=== PATIENT | female | born 1955 | race Caucasian/White ===

== ENCOUNTER → 2016-07-28 | Outpatient (CLI) | payer BC ==
--- NOTE | 2016-07-28 15:55 | MAMMOGRAPHY REPORT ---
BILATERAL DIGITAL SCREENING MAMMOGRAM TOMOSYNTHESIS WITH CAD: 07/28/2016 CLINICAL HISTORY: Routine screening. Patient has no complaints. TECHNIQUE: Bilateral breast tomosynthesis in addition to standard 2D mammography was performed. Curr ent study was also evaluated with a Computer Aided Detection (CAD) system. COMPARISON: Comparison is made to exams dated: 07/25/2015 mammogram, 07/19/2013 mammogram, 07/23/2014 mammogram, 06/27/2012 mammogram, 06/25/2011 mammogram, and 07/16/2010 ultrasound - [facility]. BREAST COMPOSITION: There are scattered areas of fibroglandular density in both breasts. FINDINGS: There is a possible 6 mm mass in the upper outer middle one third of the right breast, fo r which additional spot compression tomosynthesis views with a small paddle and possibly ultrasound are recommended. Segmental punctate microcalcifications in the left retroareolar breast are unchanged on prior mammog andrey dating back to at least 11/06/2007, therefore likely benign. No other suspicious mass, architec tural distortion or cluster of microcalcifications is seen. IMPRESSION: ACR BI-RADS CATEGORY 0: INCOMPLETE EVALUATION: NEED ADDITIONAL IMAGING EVALUATION The possible 6 mm mass in the right upper outer breast needs additional evaluation. The patient will be called to schedule an appointment. Approximately 10% of breast cancers are not detected with mammography. A negative mammographic repor t should not delay biopsy if a clinically suggestive mass is present. Fannie Curran M.D. ay/:07/28/2016 12:46:17 Bale Sewer: Tanya Henson RT(R)(M), [facility] letter sent: Addl Imaging 0 BI-RADS Code: ACR BI-RADS Category 0: Incomplete Evaluation: Need Additional Imaging Evaluation
== END | disposition home or self-care (01) ==
LOC: C.MAMM 08:00
PROVIDERS: ATTEND Family Medicine
DX: Z12.31 Encounter for screening mammogram for malignant neoplasm of breast (principal); R92.8 Other abnormal and inconclusive findings on diagnostic imaging of breast

== ENCOUNTER → 2016-08-05 | Outpatient (CLI) | payer BC ==
--- NOTE | 2016-08-05 15:07 | MAMMOGRAPHY REPORT ---
UNILATERAL RIGHT DIGITAL DIAGNOSTIC MAMMOGRAM TOMOSYNTHESIS AND TARGETED RIGHT ULTRASOUND: 08/05/2016 CLINICAL HISTORY: Callback from screening mammogram for right breast asymmetry. TECHNIQUE: Breast tomosynthesis in addition to standard 2D mammography was performed. Spot clifford patrick right CC and MLO 2-D and tomosynthesis images were obtained. COMPARISON: Comparison is made to exams dated: 07/28/2016 mammogram, 07/25/2015 mammogram, 07/23/2014 mammogram, 07/19/2013 mammogram, 06/27/2012 mammogram, and 06/25/2011 mammogram - [facility]. BREAST COMPOSITION: There are scattered areas of fibroglandular density in the right breast. FINDINGS: The previously described asymmetry seen within the right upper outer quadrant effaces to a baseline appearance on the additional views, with appearance of this region similar to multiple pr ior exams on the additional views including the 2009 exam. No discrete mammographic mass or area of architectural distortion is seen in this region on the tomosynthesis images. Targeted ultrasound was performed of the right upper outer quadrant in the region of the mammographi c asymmetry. Sonographically normal tissue is seen, without evidence of a mass or other suspicious sonographic abnormality. IMPRESSION: ACR BI-RADS CATEGORY 2: BENIGN, TARGETED ULTRASOUND ACR BI-RADS CATEGORY 2: BENIGN The right breast asymmetry effaces on the additional views, without corresponding sonographic abnorm ality evident. The asymmetry is benign and compatible with normal fibroglandular tissue. There is no mammographic or targeted sonographic evidence of malignancy. A 1 year screening mammogram is matthias mmended. The patient has been verbally notified of the results. Approximately 10% of breast cancers are not detected with mammography. A negative mammographic repor t should not delay biopsy if a clinically suggestive mass is present. Rhoda Kinsey M.D. /:08/05/2016 09:01:16 Detective Chief: Ana M Laureano, [facility] letter sent: Normal 1/2 BI-RADS Code: ACR BI-RADS Category 2: Benign Ultrasound BI-RADS: ACR BI-RADS Category 2: Benign
== END | disposition home or self-care (01) ==
LOC: C.MAMM 08:40
PROVIDERS: ATTEND Family Medicine
DX: N63 Unspecified lump in breast (principal); N64.89 Other specified disorders of breast

== ENCOUNTER → 2017-08-03 | Outpatient (CLI) | payer OTHER ==
--- NOTE | 2017-08-03 15:21 | MAMMOGRAPHY REPORT ---
BILATERAL DIGITAL SCREENING MAMMOGRAM TOMOSYNTHESIS WITH CAD: 08/03/2017 CLINICAL HISTORY: Routine screening. Patient has no complaints. TECHNIQUE: Breast tomosynthesis in addition to standard 2D mammography was performed. Current study was also evaluated with a Computer Aided Detection (CAD) system. COMPARISON: Comparison is made to exams dated: 08/05/2016 ultrasound, 08/05/2016 mammogram, 07/28/2016 ma mmogram, 07/25/2015 mammogram, 07/23/2014 mammogram, and 07/19/2013 mammogram - [facility]. BREAST COMPOSITION: There are scattered areas of fibroglandular density in both breasts. FINDINGS: There is a stable intramammary lymph node in the left upper outer quadrant posteriorly, and a stable grouping of punctate microcalcifications in the central left breast. No new suspicious mas s, architectural distortion or cluster of microcalcifications is seen. IMPRESSION: ACR BI-RADS CATEGORY 1: NEGATIVE There is no mammographic evidence of malignancy. A 1 year screening mammogram is recommended. The pa tient will receive written notification of the results. Approximately 10% of breast cancers are not detected with mammography. A negative mammographic report should not delay biopsy if a clinically suggestive mass is present. Fannie Curran M.D. ay/:08/03/2017 08:10:51 Manager Consumer: Ana M Laureano, [facility] letter sent: Normal 1/2 BI-RADS Code: ACR BI-RADS Category 1: Negative
== END | disposition home or self-care (01) ==
LOC: C.MAMM 07:52
PROVIDERS: ATTEND Family Medicine
DX: Z12.31 Encounter for screening mammogram for malignant neoplasm of breast (principal)

== ENCOUNTER 2019-04-02 09:44 | Inpatient (IN) ==
--- NOTE | 2019-03-19 13:59 | PAT Medication Instructions ---
Medication Instructions Date of Service March 19, 2019 Home Medications Ca carb-Ca gluc-Mg ox-Mg gluco [Calcium Magnesium] 1 tab PO DAILY Potassium 2 tab PO DAILY cholecalciferol (vitamin D3) [Vitamin D3] 1,000 unit PO DAILY collagen (bovine) 100 % TOPICAL UD flaxseed oil 2,000 mg PO DAILY levothyroxine 125 mcg PO UD vitamin B complex 1 tab PO DAILY STOP taking 2 weeks before surgery (or as soon as possible if surgery is within 2 weeks) flaxseed oil 2,000 mg PO DAILY STOP taking 24 hours before surgery collagen (bovine) 100 % TOPICAL UD DO NOT take the morning of surgery Ca carb-Ca gluc-Mg ox-Mg gluco [Calcium Magnesium] 1 tab PO DAILY Potassium 2 tab PO DAILY cholecalciferol (vitamin D3) [Vitamin D3] 1,000 unit PO DAILY vitamin B complex 1 tab PO DAILY Take morning of surgery With a small sip of water, OTHERWISE NOTHING TO EAT OR DRINK AFTER MIDNIGHT: levothyroxine 125 mcg PO UD Other Notes If you have any questions please call us at [phone] or [phone] or [phone] or [phone]
--- NOTE | 2019-03-20 11:35 | Anesthesiology Consultation ---
Date of Service March 20, 2019 Assessment & Plan (1) Encounter for pre-operative examination: Chart Review Chart Review: Acceptable Risk for Surgery and Patient seen in Pre Admission Testing Teaching & Discussion Pre-Anesthesia Teaching/Discussion Notes: Instructed NPO after midnight before surgery,except medications with 15 cc of water. Medication instructions provided according to the PAT guidelines. History Surgery Operation Date: 04/02/19 12:00 Proposed Procedures p Total Hip Arthroplasty Uncemented - Donnie Del Toro MD Height/Weight Height: 5 ft 6 in Weight: 58.1 kg Allergies Allergy/AdvReac Type Severity Reaction Status Date / Time oxycodone [From Percocet] AdvReac Intermediate SEVERE Verified 03/19/19 13:57 BLADDER SPASMS (SEE COMMENTS) Medications Home Medications Medication Instructions Recorded Confirmed Last Taken Ca carb-Ca gluc-Mg ox-Mg gluco 1 tab PO DAILY 03/13/19 03/13/19 Unknown [Calcium Magnesium] Potassium 2 tab PO DAILY 03/13/19 03/13/19 Unknown cholecalciferol (vitamin D3) 1,000 unit PO DAILY 03/13/19 03/13/19 Unknown [Vitamin D3] collagen (bovine) 100 % TOPICAL UD 03/13/19 03/13/19 Unknown flaxseed oil 2,000 mg PO DAILY 03/13/19 03/13/19 Unknown levothyroxine 125 mcg PO UD 03/13/19 03/13/19 Unknown vitamin B complex 1 tab PO DAILY 03/13/19 03/13/19 Unknown Past Medical History Medical History (Updated 03/20/19 @ 11:48 by Betzy Daily) Hypothyroidism MVP (mitral valve prolapse) Per patient, told MVP in 30's/no evidence of MVP per 2004 stress ECHO/no murmur on PAT exam Osteoarthritis Exercise / Class Metabolic Activity II 4-5 Yardwork/Stairs/Walk up hill (one flight of stairs (no chest pain/no sob)) Past Family History Family History Other No significant family history Past Surgical History Surgical History History of colonoscopy History of mandibular surgery JAW WIRED S/P JAW FX- NO ROM LIMITATIONS History of open reduction and internal fixation (ORIF) procedure LEFT LEG/ANKLE (HARDWARE) History of tonsillectomy Past Anesthesia History No Hx of Anesthesia Complications and No Family Hx of Anesthesia Complications History of PONV Hx of Motion Sickness Social History Smoking Status: Former smoker tobacco type: cigarettes Do You Dip or Chew Tobacco: No Smoking End Date: light use as teen Hx Alcohol Use: Yes Alcohol type: wine alcohol intake frequency: 0-2 drinks per day Alcohol Intake Frequency Comment: 1 GLASS DAILY ON AVERAGE Hx Substance Use: No substance use type: does not use Review of Systems Patient denies chest pain, shortness of breath, dyspnea on exertion, cough, wheezing, palpitations. Physical Exam Vital Signs VITALS BP 101/61 (per patient, BP typically lwo to normal range) P 65 TEMP 98.2 SP02 98%RA RESP 16 PHYSICAL Full neck and c-spine range of motion. Full TMJ range of motion. TMD 3.5 finger breaths Mallampati Score 3 Dentition: intact, upper front caps Lungs: clear throughout to auscultation Cardiac: regular rate and rhythm, no murmurs noted Spine: normal Carotid arteries: negative bruit Extremities: no edema Testing Laboratory Results 03/20/19 11:54 03/20/19 11:54 PT 10.0 Seconds (9.0-12.0) 03/20/19 11:54 INR 1.0 (0.9-1.1) 03/20/19 11:54 APTT 24.2 Seconds (21.0-31.0) 03/20/19 11:54 Blood Type O Positive 03/20/19 11:54 Antibody Screen NEGATIVE 03/20/19 11:54 Electrocardiogram Date: 03/20/19 NSR at 69bpm. Possible anterior infarct (no significant change compared to 12/23/2010 per cardiology) Chest X-Ray Date: 03/20/19 Cardiomediastinal and hilar silhouettes are within normal limits. Lungs are hyperinflated. There is no pneumothorax, pleural effusion, focal airspace consolidation or overt pulmonary edema. Degenerative changes of the shoulders and spine. Hyperinflation without acute process. Stress Test Date: 08/14/04 "Normal" stress ECHO. LVEF 75%. Stress EKG normal. Stress wall motion is normal. Mitral valve anatomy is normal. Mitral regurgitation in absent. No significant valvular disease.
--- NOTE | 2019-03-20 12:28 | XRay Report ---
XR chest Pre-admission PA/Lat HISTORY: 63 years-old Female pat preoperative exam. No acute chest complaints COMPARISON: None available TECHNIQUE: PA and lateral views of the chest FINDINGS: Cardiomediastinal and hilar silhouettes are within normal limits. Lungs are hyperinflated. There is n o pneumothorax, pleural effusion, focal airspace consolidation or overt pulmonary edema. Degenerative changes of the shoulders and spine. IMPRESSION: Hyperinflation without acute process. The above report was generated using voice recognition software. It may contain grammatical, syntax o r spelling errors. Electronically signed by: Олег Brito M.D. 03/20/2019 12:27 PM
[2019-03-20 12:47] LABS: Basophils # (auto) 0.06 K/uL (0-0.2); Basophils % (auto) 1.4 %; Eosinophils # (auto) 0.13 K/uL (0-0.5); Eosinophils % (auto) 3.1 %; Hematocrit (blood only) 41.1 % (37-47); Lymphocytes # (auto) 1.32 K/uL (1.2-3.4); Lymphocytes % (auto) 31.1 %; Mean Corpuscular Hemoglobin 29.7 pg (25-34); Mean Corpuscular Hgb Conc 31.6 g/dL (32-36); Mean Corpuscular Volume 94.1 fL (80-100); Mean Platelet Volume 11.2 fL (7.4-10.4); Monocytes # (auto) 0.37 K/uL (0.11-0.59); Monocytes % (auto) 8.7 %; Neutrophils # (auto) 2.36 K/uL (1.4-6.5); Neutrophils % (auto) 55.7 %; Platelet Count 200 K/uL (130-400); RDW Coefficient of Variation 13.5 % (11.5-14.5); RDW Standard Deviation 46.8 fL (36.4-46.3); Red Blood Count 4.37 M/uL (4.2-5.4); White Blood Count 4.24 K/uL (4.8-10.8)
[2019-03-20 13:01] LABS: Partial Thromboplastin Ratio 0.9; Partial Thromboplastin Time 24.2 Seconds (21.0-31.0)
[2019-03-20 13:04] LABS: BUN Creatinine Ratio 16.4 (10-20); Calcium 9.4 mg/dl (8.5-10.1); Creatinine Clr Calc Pharmacy 48.6 ml/min; Est GFR (African American) 62.3; Est GFR (Non-African American) 53.8; Potassium 3.8 mmol/L (3.5-5.1)
--- NOTE | 2019-03-28 22:12 | History and Physical Report ---
DATE OF ADMISSION: 04/02/2019 CHIEF COMPLAINT: Left hip pain. HISTORY OF PRESENT ILLNESS: The patient is a 63-year-old very active female who presents for surgical treatment of her left hip. She has a long history of left hip pain and discomfort that has gradually gotten worse over the past several years. It has really limited her activities. She used to exercise regularly but not able to do that, near as much anymore. She used to run and does not run at all. She has started to develop more and more of a limited walking ability. She has difficulty putting her shoes and socks on. She has pain going up and down steps. She has nighttime pain. She would like to have her left hip fixed. She does have occasional pain in her right hip as well. PAST MEDICAL HISTORY: 1. Mitral valve prolapse. PAST SURGICAL HISTORY: Include left ankle ORIF done by myself in 12/24/2010. ALLERGIES: None. CURRENT MEDICATIONS: Include levothyroxine half tablet a day. SOCIAL HISTORY: A 63-year-old female. Works at [employer]. Does not smoke. Very avid stamping machine operator. FAMILY HISTORY: Noncontributory. REVIEW OF HISTORY: Negative for diabetes, neurologic problem, vascular problems or bleeding disorders. Denies any chest pain or shortness of breath. No signs of DVT or PE. PHYSICAL EXAMINATION: GENERAL: Shows a thin, pleasant, healthy, middle-aged female. Looks to be in excellent health. HEENT: Benign. NECK: Supple, no lymphadenopathy. LUNGS: Clear to auscultation. HEART: Has a regular rate and rhythm. ABDOMEN: Soft, nontender, nondistended. EXTREMITIES: Grossly neurovascularly intact except as follows: Examination of left hip revealed patient walks with a slight bit of a limp. Leg lengths appear pretty equal. She has a very stiff hip with internal rotation to neutral at best. This recreates her pain. Negative straight leg raise. She is neurologically intact. No knee effusion. X-RAYS: X-rays of the left hip were reviewed. Shows advanced left hip DJD. She has got complete loss of her superior joint space. She has extensive subchondral sclerosis and pretty significant medial osteophyte. She does have some moderate right hip degenerative joint disease as well. ASSESSMENT: A 63-year-old female with advanced left hip degenerative joint disease. She failed conservative treatment and would like to have her left hip replaced. PLAN: We will take her to the operating room and do a left total hip replacement. The risks and benefits of this procedure were explained to the patient and include but not limited to DVT, PE, , infection, neurological injury, vascular injury, bleeding problem, pain, limited range of motion, stiffness, failure to relieve symptoms, incomplete relief of symptoms, need for further surgery in future, fracture, leg length inequality, nerve palsy, dislocation, need for revision surgery. The patient understands and desires to proceed. Informed consent was obtained. Medicines, no new medicines at this time. Work or school restrictions none. Return in 2 weeks postop.
[~2019-04-02 09:44] MED LIST: ACETAMINOPHEN 500 MG TAB PO SCH; BUPIVACAINE 0.5 % 5 MG/1 ML PF 10ML VIAL ONE; CEFAZOLIN 2000MG 2,000 MG/15 ML SYR IV SCH; FAMOTIDINE 20 MG TAB PO SCH; GABAPENTIN 600 MG DOSE PO SCH; LR 500ML BOLUS, THEN 15ML/HR IV SCH; LR 60ML/HR IV SCH; METOCLOPRAMIDE HCL 10 MG TABLET PO SCH; SCOPOLAMINE 1.5 MG TDSY TD SCH; TRANEXAMIC ACID 1,000 MG **IV Pre-op IV SCH
[2019-04-02] MEDS ORDERED: EPINEPHrine INJ 1 MG/ML AMP ONE (10:47)
[2019-04-02] MEDS ORDERED: BUPIVACAINE 0.5 % 5 MG/1 ML MPF 30ML VIAL ONE (10:48)
[2019-04-02] MEDS ORDERED: BACITRACIN INJ 50,000 UNIT VIAL ONE (10:48)
[2019-04-02] MEDS ORDERED: MIDAZOLAM HCL 1 MG/ML 2ML VIAL ONE (11:49)
[2019-04-02] MEDS ORDERED: MoRPHine SULFATE PF 1 MG/ML 10 ML AMP/VIAL ONE (11:51)
[2019-04-02] MEDS ORDERED: fentaNYL citrate 100 MCG/2 ML VIAL ONE (11:51)
--- NOTE | 2019-04-02 12:27 | History & Physical Bridge Note ---
Date of Service April 02, 2019 History & Physical Bridge Note I have examined the patient, reviewed the History & Physical and in the interval since the performance of the History & Physical I have noted the following changes of clinical significance: no changes noted
[2019-04-02] MEDS ORDERED: PHENYLEPHRINE HCL 10 MG/ML VIAL ONE (13:15)
[2019-04-02] MEDS ORDERED: ePHEDrine sulfate 50 MG/ML SYR ONE (13:15)
[2019-04-02] MEDS ORDERED: GLYCOPYRROLATE 0.2 MG/ML VIAL ONE (13:33)
[2019-04-02] MEDS ORDERED: ePHEDrine sulfate 50 MG/ML AMP IV PRN ×2 (13:51→14:33)
[2019-04-02] MEDS ORDERED: ATROPINE SULFATE 0.1 MG/ML 10ML SYR IV PRN (13:51)
--- NOTE | 2019-04-02 14:00 | Post Operative Brief Note ---
PG Immediate Post Op with CF Date of Surgery April 02, 2019 Pre & Post Diagnosis Operation Date: 04/02/19 12:00 Pre-Op Diagnosis: LEFT HIP DEGENERATIVE JOINT DISEASE Post-Op Diagnosis: LEFT HIP DEGENERATIVE JOINT DISEASE I identified the patient and participated in the time-out.: Yes Procedure Operation Date: 04/02/19 12:00 Actual Procedures p Left Total Hip Arthroplasty.(Left) - Donnie Del Toro MD Surgeon Donnie Del Toro MD Account Services Coordinator Hadley, PAC Estimated Blood Loss 200 Findings Consistent with Post-Op Diagnosis Fluids 1700 cc Specimens Specimen Description: A. Left femoral head. Drains Queen Catheter Anesthesia Type Spinal MAC Complications none Disposition Accompanied Patient To Recovery: Yes Disposition: Recovery Room
--- NOTE | 2019-04-02 14:12 | Operative Report ---
Post Operative Report Pre & Post Diagnosis Operation Date: 04/02/19 12:00 Pre-Op Diagnosis: LEFT HIP DEGENERATIVE JOINT DISEASE Post-Op Diagnosis: LEFT HIP DEGENERATIVE JOINT DISEASE I identified the patient and participated in the time-out.: Yes Procedure Operation Date: 04/02/19 12:00 Actual Procedures p Left Total Hip Arthroplasty.(Left) - Donnie Del Toro MD Surgeon Donnie Del Toro MD Maintenance Mgr Hadley, PAC Estimated Blood Loss 200 Findings Consistent with Post-Op Diagnosis Operative findings revealed advanced left hip DJD with extensive grade 4 [id number] disease of the femoral head and acetabulum. She had fairly large osteophytes around the femoral head. Moderate sized joint effusion. Moderate synovitis. Moderate-sized medial osteophyte. Fluids 1700 cc Specimens Left femoral head sent for pathology. Drains None. Anesthesia Type Spinal MAC Complications none Disposition Accompanied Patient To Recovery: Yes Disposition: Recovery Room Indications Patient is a very active 64-year-old female is had a several year history of increasing left hip pain discomfort. She been through extensive conservative treatment and this is failed. Her pain and limitations were really limiting her activity level. X-rays show advanced left hip DJD patient elected to proceed with left total hip arthroplasty. Description of Procedure Operative implants consisted of: 1. Biomet G7 size 50 mm acetabular shell. 2. Biomet size 50 mm outer diameter and 32 mm diameter highly cross-link polyethylene liner. 3. [place] hole eliminator. 4. 6.5 cancellus acetabular screws 1 a 35 mm length and 1 to 20 mm length. 5. Barnett Corail size 10 KLA femoral stem. 6. +5/32 mm ceramic articular ball. Patient was taken to the operating room identified and placed in the operating table supine position. Contact there is probably padded. IV antibiotics were provided by anesthesia team. Spinal anesthetic been implemented holding area. Queen catheter was placed in sterile fashion. Patient then placed in the right lateral decubitus position. An axillary roll was placed per the Stulberg hip positioner was used for positioning. Left hip and leg were then prepped and draped in usual sterile fashion. A posterior lateral posterior left hip was then performed to a curvilinear incision centered over the greater trochanter. Sharp passes cut through subcutaneous tissue down below the IT band gluteal fascia to the IT band gluteal fascia was then incised longitudinally in line with skin incision. The underlying greater bursa was then excised. The piriformis and external rotators were then tagged and taken off the posterior aspect of the hip joint capsule. Great care was taken throughout the procedure to protect the sciatic nerve at all times. Posterior capsulotomy was then performed leaving a large flap for later repair. Hip was internally rotated and dislocated. Femoral neck osteotomy cut was made with Final Cut about 8 mm above the lesser trochanter. Femoral head was removed and sent for pathology. The femur was retracted anteriorly. Attention drawn the acetabulum. The acetabular labrum was excised with the pulmonary fat was excised. Sequential reaming the acetabulum was then performed again with size 43 reamer and progressing up to 49. 50 mm Biomet G7 acetabular shell was then placed in about 40 degrees lateral opening and 20 degrees of anteversion. It was fixed with two 6.5 cancellus acetabular screws. Trial liner was placed. Attention drawn the femur. The proximal femur was entered with a PayDragonie cutter followed by canal finder. I then broached begin the size 8 and progressing up to 10. We will get excellent fitted to 10. Calcar reamer was used to smooth off the calcar. Then trialed the hip in the +5 articular ball provide full stability and full extension and external rotation and flexion to 90 degrees internal rotation over 60 degrees. Leg lengths seemed appropriate. Soft tension seemed appropriate. I would like to place these implants. All trial implants were removed. An apex hole eliminator was placed but highly cross-link polyethylene liner was placed. A Sherly [facility] size 10 KLA femoral stem was impacted in position. +5/32 mm ceramic articular ball was placed. Hip was located once again found to be stable. Attention drawn to closing. Breath wounds irrigated cups amounts of pulsatile lavage solution. I did inject locally with 60 cc of half percent Marcaine with epinephrine. The posterior capsule and external rotators were then repaired through drill holes in the posterior trochanter with #2 Tycron suture B the IT band gluteal fascia then closed with #1 PDS suture running fashion with subtenons tissue then closed 2 layers with a deep layer #1 Vicryl suture the subcutaneous tissues with 2 Dexon suture in a buried interrupted fashion the skin was closed skin lauren. Leg was then cleaned dried a sterile dressing composed of Xeroform, 4 x 4's, ABD pads, foam tape was applied. Patient transferred to the recovery room in stable condition. Patient tolerated procedure well no comp case but only sponge counts are correct at the end the operation. I attest to the content of the Intraoperative Record and any orders documented t herein. Any exceptions are noted below.
--- NOTE | 2019-04-02 14:29 | XRay Report ---
XR hip 1V LT w pelvis CLINICAL HISTORY: Postoperative study. Degenerative arthritis. COMPARISON: 03/08/2019 DISCUSSION: There are postsurgical changes of a total left hip arthroplasty. The acetabular and femor al components appear well seated. There is no dislocation. There is gas present within the soft tissu es consistent with recent surgery. There are overlying skin lauren. Again evident is a peritrochante kasia calcification adjacent to the right hip. IMPRESSION: Postsurgical changes of a total left hip arthroplasty. No evidence of dislocation. Electronically signed by: Mehrdad Alarcon M.D. 04/02/2019 2:28 PM
[2019-04-02] MEDS ORDERED: DiphenhydrAMINE HCL 50 MG/ML VIAL IV PRN (14:33)
[2019-04-02] MEDS ORDERED: NALOXONE HCL 0.08 MG in SYRINGE 1.8 ML IV PRN (14:33)
[2019-04-02] MEDS ORDERED: NALOXONE HCL 0.4 MG/1 ML VIAL/CARP IV PRN ×2 (14:33→15:10)
[2019-04-02] MEDS ORDERED: LACTATED RINGER'S 500 ML IV PRN (14:33)
[2019-04-02] MEDS ORDERED: ONDANSETRON INJ 2 MG/ML 2 ML VIAL IV PRN (14:33)
[2019-04-02] MEDS ORDERED: MoRPHine SULFATE PF 1 MG/ML 10 ML AMP/VIAL INT SPINAL ONE (14:33)
[2019-04-02] MEDS ORDERED: NALBUPHINE HCL INJ 10 MG/ML AMP IV PRN (14:33)
[2019-04-02] MEDS ORDERED: NALOXONE HCL 1 MG in SODIUM CHLORIDE 0.9% 1000ML 1,000 ML IV PRN (14:33)
[2019-04-02] MEDS ORDERED: PROMETHAZINE HCL 25 MG in SODIUM CHLORIDE 0.9% 50 ML IV PRN (14:33)
[2019-04-02] MEDS ORDERED: NO NARCOTICS OR SEDATIVES SCH (14:45)
[2019-04-02] MEDS ORDERED: SODIUM CHLORIDE 0.9% 1000ML 1,000 ML IV SCH (14:45)
[2019-04-02] MEDS ORDERED: DC INTRASPINAL MORPHINE SCH (14:45)
--- NOTE | 2019-04-02 14:45 | Anesthesiology Progress Note ---
Date of Service April 02, 2019 Anesthesia Post Procedure Vital Signs Vital Signs: Temp Pulse Pulse Resp BP BP Pulse Ox 04/02/19 14:30 36.6 C 75 16 92/52 L 100 04/02/19 14:20 83 16 98/55 L 97 04/02/19 14:10 83 16 95/52 L 100 04/02/19 14:00 36.8 C 93 H 16 102/56 L 100 04/02/19 10:03 36.6 C 69 16 129/75 100 Transfer of Care Handoff Completed per policy Notes Mental Status: alert / awake / arousable Patient Amnestic to Procedure: Yes Nausea / Vomiting: adequately controlled Pain: adequately controlled Airway Patency, RR, SpO2: stable & adequate BP & HR: stable & adequate Hydration State: stable & adequate Neuraxial Anesthesia: was administered and sensory block is resolving Anesthetic Complications: no major complications apparent
[2019-04-02] MEDS ORDERED: BISACODYL 10 MG SUPP PR PRN (15:10)
[2019-04-02] MEDS ORDERED: ALUMINUM/MAGNESIUM SUSP 30 ML UDC PO PRN (15:10)
[2019-04-02] MEDS ORDERED: COLLAGEN 100% TOP SCH (15:10)
[2019-04-02] MEDS ORDERED: MAGNESIUM HYDROXIDE SUSP 30 ML UDC PO PRN (15:10)
[2019-04-02] MEDS: SODIUM CHLORIDE 0.9% 1000ML 1,000 ML IV SCH ×2 (15:43→23:20)
[2019-04-02] MEDS: CHECK SCOPOLAMINE PATCH PLACEMENT SCH ×2 (15:57→23:21)
[2019-04-02] MEDS ORDERED: LACTATED RINGER'S 1,000 ML IV PRN (17:19)
[2019-04-02] MEDS: FERROUS GLUCONATE 324 MG TAB PO SCH (17:29)
[2019-04-02] MEDS: ASCORBIC ACID 500 MG TAB PO SCH (17:30)
[2019-04-02] MEDS ORDERED: TRANEXAMIC ACID 1,000 MG in 0.9 % SODIUM CHLORIDE 100 ML IV SCH (20:01)
[2019-04-02] MEDS: CEFAZOLIN 1000MG 1,000 MG/7.5 ML SYR IV SCH (20:34)
[2019-04-02] MEDS: DOCUSATE SODIUM 100 MG CAP PO SCH (20:35)
[2019-04-02] MEDS: SENNA 8.6 MG TAB PO SCH (20:35)
[2019-04-02] MEDS: ACETAMINOPHEN 500 MG TAB PO SCH (21:12)
[2019-04-03] MEDS: CEFAZOLIN 1000MG 1,000 MG/7.5 ML SYR IV SCH (03:09)
[2019-04-03 05:55] LABS: Basophils # (auto) 0.02 K/uL (0-0.2); Basophils % (auto) 0.3 %; Eosinophils # (auto) 0.02 K/uL (0-0.5); Eosinophils % (auto) 0.3 %; Hematocrit (blood only) 33.9 % (37-47); Hemoglobin 10.9 g/dL (12.0-16.0); Immature Granulocytes # (auto) 0.01 K/uL (0.00-0.02); Immature Granulocytes % (auto) 0.2 %; Lymphocytes # (auto) 0.67 K/uL (1.2-3.4); Lymphocytes % (auto) 11.4 %; Mean Corpuscular Hemoglobin 30.4 pg (25-34); Mean Corpuscular Hgb Conc 32.2 g/dL (32-36); Mean Corpuscular Volume 94.4 fL (80-100); Mean Platelet Volume 10.7 fL (7.4-10.4); Monocytes # (auto) 0.86 K/uL (0.11-0.59); Monocytes % (auto) 14.7 %; Neutrophils # (auto) 4.29 K/uL (1.4-6.5); Neutrophils % (auto) 73.1 %; Platelet Count 138 K/uL (130-400); RDW Coefficient of Variation 13.7 % (11.5-14.5); RDW Standard Deviation 47.7 fL (36.4-46.3); Red Blood Count 3.59 M/uL (4.2-5.4); White Blood Count 5.87 K/uL (4.8-10.8)
[2019-04-03] MEDS: ACETAMINOPHEN 500 MG TAB PO SCH ×3 (06:17→21:35)
[2019-04-03] MEDS: LEVOTHYROXINE SODIUM 125 MCG TABLET PO SCH (06:17)
[2019-04-03 06:33] LABS: BUN Creatinine Ratio 12.3 (10-20); Calcium 8.2 mg/dl (8.5-10.1); Creatinine Clr Calc Pharmacy 63.5 ml/min; Est GFR (African American) 88.3; Est GFR (Non-African American) 76.2
--- NOTE | 2019-04-03 08:13 | Anesthesiology Progress Note ---
Date of Service April 03, 2019 Anesthesia Post Procedure Vital Signs Vital Signs: Temp Pulse Pulse Resp BP BP Pulse Ox 04/03/19 07:16 37.3 C 04/03/19 07:15 66 16 102/51 L 98 04/03/19 05:42 16 96 04/03/19 04:50 18 98 04/03/19 03:50 18 97 04/03/19 03:00 36.7 C 78 16 95/52 L 97 04/03/19 02:50 16 97 04/03/19 01:50 18 98 04/03/19 00:57 15 95 04/02/19 23:50 14 94 04/02/19 23:20 36.8 C 58 L 14 92/49 L 94 04/02/19 22:50 16 97 04/02/19 21:50 16 95 04/02/19 20:53 18 97 04/02/19 20:50 36.6 C 66 18 93/57 L 98 04/02/19 19:50 16 97 04/02/19 17:52 16 100 04/02/19 17:50 36.4 C L 58 L 16 92/58 L 100 04/02/19 17:04 89/50 L 04/02/19 16:53 16 100 04/02/19 16:51 65 16 85/52 L 100 04/02/19 16:40 88/51 L 04/02/19 16:00 86/48 L 04/02/19 15:55 75/44 L 04/02/19 15:50 35.9 C L 64 14 67/32 L 100 04/02/19 15:17 35.9 C L 64 17 86/46 L 100 04/02/19 14:50 36.6 C 75 16 91/51 L 98 04/02/19 14:30 36.6 C 75 16 92/52 L 100 04/02/19 14:20 83 16 98/55 L 97 04/02/19 14:10 83 16 95/52 L 100 04/02/19 14:00 36.8 C 93 H 16 102/56 L 100 04/02/19 10:03 36.6 C 69 16 129/75 100 Notes Mental Status: alert / awake / arousable and participated in evaluation Patient Amnestic to Procedure: Yes Nausea / Vomiting: adequately controlled Pain: adequately controlled Airway Patency, RR, SpO2: stable & adequate BP & HR: stable & adequate Hydration State: stable & adequate Neuraxial Anesthesia: was administered and sensory block resolved Anesthetic Complications: no major complications apparent and Pt Satisfied with anesthetic care
[2019-04-03] MEDS ORDERED: METOCLOPRAMIDE HCL INJ 5 MG/ML 2 ML VIAL IV PRN (08:35)
[2019-04-03] MEDS ORDERED: HYDROmorphone INJ 0.5 MG/0.5 ML SYR IV PRN (08:35)
[2019-04-03] MEDS ORDERED: ONDANSETRON INJ 2 MG/ML 2 ML VIAL IV PRN (08:35)
[2019-04-03] MEDS ORDERED: TRAMADOL HCL 50 MG TABLET PO PRN (08:35)
[2019-04-03] MEDS: ASCORBIC ACID 500 MG TAB PO SCH ×2 (08:44→17:32)
[2019-04-03] MEDS: FERROUS GLUCONATE 324 MG TAB PO SCH ×2 (08:44→17:32)
[2019-04-03] MEDS: VITAMIN B COMPLEX TAB PO SCH (08:44)
[2019-04-03] MEDS: DOCUSATE SODIUM 100 MG CAP PO SCH ×2 (08:45→20:44)
[2019-04-03] MEDS: KETOROLAC 30 MG/ML VIAL IV SCH ×3 (08:45→20:44)
[2019-04-03] MEDS: CHOLECALCIFEROL 1,000 UNITS TAB PO SCH (08:45)
[2019-04-03] MEDS: MULTIVITAMIN TAB PO SCH (08:45)
[2019-04-03] MEDS ORDERED: NON-FORMULARY MEDICATION (Potassium 2 TAB) PO SCH (09:00)
[2019-04-03] MEDS ORDERED: FLAXSEED OIL 2000 MG PO SCH (09:00)
[2019-04-03] MEDS ORDERED: NON-FORMULARY MEDICATION (Ca Carb-Ca Gluc-Mg Ox-Mg Gluco [Calcium Magnesium] 1 TAB) PO SCH (09:00)
--- NOTE | 2019-04-03 11:24 | Progress Note ---
DATE: 04/03/2019 SUBJECTIVE: A 64-year-old female postop day 1 from a left hip replacement. She is doing pretty well. Says she is quite sore. No chest pain or shortness of breath. Not feeling dizzy or lightheaded. OBJECTIVE: VITAL SIGNS: Temperature 37.3. Vital signs stable. GENERAL: Shows a pleasant, middle-aged female. She was getting back into bed when I saw her this morning. She needed a little bit of help with this. She looks relatively comfortable. EXTREMITIES: Examination of the left hip and leg reveals leg lengths to be equal. Dressing is clean, dry and intact. Thigh is soft and supple. She is neurologically intact. She can dorsiflex and plantarflex her foot appropriately. LABORATORY DATA: Hemoglobin 10.9. Hematocrit 33.9. Electrolytes are stable. ASSESSMENT: A 64-year-old female postop day 1 from a left hip replacement, doing pretty well. Pretty sore but really not taken much pain medicines. She does not do well with pain meds. This is at her desire. PLAN: 1. DVT prophylaxis including thigh-high TEDs, SCDs, and aspirin twice a day. 2. PT/OT. Weight bear as tolerated. Left total hip protocol. 3. Pain control, doing pretty well with current pain regimen. 4. Disposition: Plan to discharge to home with some home health once adequately recovered and medically stable.
[2019-04-03] MEDS: SENNA 8.6 MG TAB PO SCH (20:44)
[2019-04-03] MEDS: ASPIRIN 81 MG ECTAB PO SCH (21:35)
[2019-04-04] MEDS: KETOROLAC 30 MG/ML VIAL IV SCH ×2 (02:38→09:05)
[2019-04-04] MEDS: LEVOTHYROXINE SODIUM 125 MCG TABLET PO SCH (05:20)
[2019-04-04] MEDS: ACETAMINOPHEN 500 MG TAB PO SCH (05:21)
[2019-04-04] MEDS: FERROUS GLUCONATE 324 MG TAB PO SCH (09:01)
[2019-04-04] MEDS: MULTIVITAMIN TAB PO SCH (09:02)
[2019-04-04] MEDS: CHOLECALCIFEROL 1,000 UNITS TAB PO SCH (09:02)
[2019-04-04] MEDS: ASPIRIN 81 MG ECTAB PO SCH (09:02)
[2019-04-04] MEDS: VITAMIN B COMPLEX TAB PO SCH (09:02)
[2019-04-04] MEDS: ASCORBIC ACID 500 MG TAB PO SCH (09:02)
[2019-04-04] MEDS: DOCUSATE SODIUM 100 MG CAP PO SCH (09:02)
--- NOTE | 2019-04-04 09:06 | Progress Note ---
DATE: 04/04/2019 SUBJECTIVE: A 64-year-old female postop day 2 from a left hip replacement. She is doing pretty well. Seems a bit more comfortable this morning. No chest pain or shortness of breath. She has been getting around and walking with a walker quite well. OBJECTIVE: VITAL SIGNS: Temperature 36.8. Vital signs stable. GENERAL: Physical examination shows a pleasant, thin, healthy female. She was walking around her room with a walker quite well this morning. EXTREMITIES: Examination of the left hip reveals dressing to be clean, dry and intact. No drainage. Leg lengths were equal. Thigh is soft and supple. She is neurologically intact. ASSESSMENT: A 64-year-old female postop day 2 from a left hip replacement, doing well. Pain is controlled. Hip is located. She is neurologically intact. PLAN: 1. DVT prophylaxis including thigh-high TEDs, SCDs, and aspirin twice a day. 2. PT/OT. Weight bear as tolerated. Left total hip protocol. 3. Pain control, doing well with current pain regimen. 4. Disposition: Plan to discharge to home and she is going to do outpatient therapy.
--- NOTE | 2019-04-10 01:19 | Discharge Summary ---
ADMITTING PHYSICIAN AND SURGEON: Donnie Del Toro MD ADMITTING DIAGNOSIS: Left hip degenerative joint disease. SURGERY PERFORMED: Left total hip arthroplasty. SECONDARY DIAGNOSIS: Mitral valve prolapse. CONSULTATIONS: None obtained. HISTORY AND PHYSICAL EXAMINATION: Well documented in the patient's chart. HOSPITAL COURSE: The patient is a 64-year-old female admitted on 04/02/2019, underwent total hip arthroplasty, tolerated the procedure well. There were no complications. She was transferred to the PACU postoperatively and later to the orthopedic floor for further care. She was given Ancef for antibiotic prophylaxis, DIMAS stockings, SCDs, and aspirin for DVT prophylaxis. Hemoglobin, hematocrit, and vital signs were monitored during her hospital stay and remained stable. Did not require any blood transfusions. There were no complications. By postoperative day 2, she was tolerating a regular diet, pain was controlled with oral pain medicine. She was participating in physical therapy. On postop day 2, she was discharged home. She was given printed discharge instructions as well as new prescriptions for Extra Strength Tylenol, aspirin, and tramadol. Continue her home medications, continue physical therapy, weightbearing as tolerated, DIMAS stockings, total hip precautions. Follow up in approximately 2 weeks postop or sooner if there are any problems or concerns.
== END 2019-04-04 10:30 | disposition home or self-care (01) | DRG 470 ==
LOC: ASU 09:44 → 3E 14:05

== ENCOUNTER 2023-11-29 05:09 | Observation (INO) ==
--- NOTE | 2023-11-09 14:11 | PAT Medication Instructions ---
Medication Instructions Date of Service November 09, 2023 Home Medications collagen (bovine) 100 % topical powder 1 ea UD levothyroxine 125 mcg tablet 125 mcg PO QAM vitamin B complex 1 tab PO QAM ascorbic acid (vitamin C) 500 mg capsule 500 mg PO QAM Antibiotic 1 dose PO UD PRN pre dental calcium carb, gluc 500 mg calcium-magnesium gluc, oxide 250 mg tablet (Calcium Magnesium) 1 tab PO QPM ibuprofen 600 mg tablet 600 mg PO UD PRN Pain melatonin 10 mg chewable tablet 10 mg PO HS omega-3 fatty acids 0 mg PO QPM potassium 99 mg tablet 0 mg PO QPM trazodone 50 mg tablet 0 mg PO HS vitamin E 30 unit capsule 0 unit PO QAM Continue as directed Antibiotic 1 dose PO UD PRN pre dental (if needed) ASK your surgeon for instructions ibuprofen 600 mg tablet 600 mg PO UD PRN Pain STOP taking 2 weeks before surgery (or as soon as possible if surgery is within 2 weeks) omega-3 fatty acids 0 mg PO QPM vitamin E 30 unit capsule 0 unit PO QAM STOP taking 24 hours before surgery collagen (bovine) 100 % topical powder 1 ea UD DO NOT take the morning of surgery vitamin B complex 1 tab PO QAM ascorbic acid (vitamin C) 500 mg capsule 500 mg PO QAM Take morning of surgery With a small sip of water, OTHERWISE NOTHING TO EAT OR DRINK AFTER MIDNIGHT: levothyroxine 125 mcg tablet 125 mcg PO QAM Take evening before surgery calcium carb, gluc 500 mg calcium-magnesium gluc, oxide 250 mg tablet (Calcium Magnesium) 1 tab PO QPM melatonin 10 mg chewable tablet 10 mg PO HS potassium 99 mg tablet 0 mg PO QPM trazodone 50 mg tablet 0 mg PO HS Other Notes If you have any questions please call us at [phone] or [phone] or [phone] or [phone]
--- NOTE | 2023-11-14 09:40 | Anesthesiology Consultation ---
Date of Service November 14, 2023 Assessment & Plan (1) Encounter for pre-operative examination: - Infectious disease screening: Per assessment on 11/14/23: No known infectious disease contacts or current infectious disease symptoms. No noted recent Covid positive testing. - Outpatient joint assessment: Pt currently scheduled for inpatient pathway. If surgeon requests review for outpatient joint pathway, patient is an acceptable candidate for outpatient joint program from anesthesia standpoint pending surgeon's office assessment that patient is motivated, has good support and completes Same Day Joint Program preop requirements. - S/P Left NILSON (04/02/2019): SAB at L3-4, 1 attempt at [facility]. Per patient, post-op diffuse itchiness x 3 days after left NILSON. Chart Review Chart Review: Acceptable Risk for Surgery and Patient seen in Pre Admission Testing Teaching & Discussion Pre-Anesthesia Teaching/Discussion Notes: Instructed NPO after midnight before surgery,except medications with 15 cc of water. Medication instructions provided according to the PAT guidelines. History Surgery Operation Date: 11/29/23 08:50 Proposed Procedures p Right Total Hip Arthroplasty - Donnie Del Toro MD Height/Weight Height: 5 ft 6 in Weight: 53.5 kg Allergies Allergy/AdvReac Type Severity Reaction Status Date / Time oxycodone [From Percocet] AdvReac Unknown Severe Verified 11/14/23 09:53 bladder spasms Medications Home Medications Medication Instructions Recorded Confirmed Last Taken collagen (bovine) 100 % topical 1 ea UD 03/13/19 11/08/23 03/30/19 08:00 powder levothyroxine 125 mcg tablet 125 mcg PO QAM 03/13/19 11/08/23 04/02/19 08:15 vitamin B complex 1 tab PO QAM 03/13/19 11/08/23 03/31/19 08:00 ascorbic acid (vitamin C) 500 mg 500 mg PO QAM 07/02/20 11/08/23 Unknown capsule Antibiotic 1 dose PO UD PRN pre dental 11/08/23 11/08/23 Unknown calcium carb, gluc 500 mg 1 tab PO QPM 11/08/23 11/08/23 Unknown calcium-magnesium gluc, oxide 250 mg tablet (Calcium Magnesium) ibuprofen 600 mg tablet 600 mg PO UD PRN Pain 11/08/23 11/08/23 11/08/23 melatonin 10 mg chewable tablet 10 mg PO HS 11/08/23 11/08/23 Unknown omega-3 fatty acids 0 mg PO QPM 11/08/23 11/08/23 Unknown potassium 99 mg tablet 0 mg PO QPM 11/08/23 11/08/23 Unknown trazodone 50 mg tablet 0 mg PO HS 11/08/23 11/08/23 Unknown vitamin E 30 unit capsule 0 unit PO QAM 11/08/23 11/08/23 Unknown Past Medical History Medical History Chronic kidney disease "Borderline" Creatinine 0.96/WNL on 11/14/23 preop labs History of mitral valve prolapse Per patient, told MVP age 30s No evidence of MVP per 2004 stress ECHO No murmur on PAT exam 11/14/23 Hypothyroidism Osteoarthritis Exercise / Class Metabolic Activity II 4-5 Yardwork/Stairs/Walk up hill (one FS: No CP, no SOB) Past Family History Family History Other No significant family history Past Surgical History Surgical History History of colonoscopy History of left hip replacement Left NILSON (04/02/2019): SAB at L3-4, 1 attempt at [facility] History of mandibular surgery Jaw wired s/p jaw fracture No ROM limitations per patient History of open reduction and internal fixation (ORIF) procedure LLE/ankle (+ hardware) History of tonsillectomy Past Anesthesia History No Family Hx of Anesthesia Complications and Other (Severe bladder spasms after LLE/ankle surgery felt to be r/t Percocet, diffuse itchiness 3 days post-op left hip replacement ) History of PONV No Hx of PONV and No Hx of Motion Sickness Social History Smoking Status: Former smoker Do You Dip or Chew Tobacco: No Smoking End Date: Light use as teen Hx Alcohol Use: Yes Alcohol type: wine alcohol intake frequency: 0-2 drinks per day (1-1.5 drink/day) Hx Substance Use: No substance use type: does not use Review of Systems Patient denies chest pain, shortness of breath, dyspnea on exertion, fever, chills, cough, wheezing, palpitations. Physical Exam Vital Signs BP 107/66 P 60 TEMP 97.3 SP02 98%RA RESP 16 Physical Full cervical extension range of motion. Full TMJ range of motion. TMD 3 finger breaths Mallampati Score 3 Dentition: intact, + upper front caps Lungs: clear throughout to auscultation Cardiac: regular rate and rhythm, no murmurs noted Spine: normal Carotid arteries: negative bruit Extremities: no LE edema Lab Results Anesthesia Preop Results Results Anesthesia Widget: WBC 4.86 K/ul (4.8-10.8) 11/14/23 Hgb 13.4 g/dl (12.0-16.0) 11/14/23 Hct 41.6 % (37.0-47.0) 11/14/23 Plt 181 K/uL (130-400) 11/14/23 Na 141 mmol/L (136-145) 11/14/23 K 4.3 mmol/L (3.5-5.1) 11/14/23 Cl 106 mmol/L (98-107) 11/14/23 CO2 29 mmol/L (21-32) 11/14/23 BUN 21 mg/dl (6-23) 11/14/23 Creat 0.96 mg/dl (0.6-1.2) 11/14/23 Glucose Level 84 mg/dl (70-99(Fasting)) 11/14/23 PT 10.1 Seconds (9.0-12.0) 11/14/23 PTT 24 Seconds (21-31) 11/14/23 INR 0.9 (0.9-1.1) 11/14/23 Blood Type O Positive 11/14/23 Antibody Screen NEGATIVE 11/14/23 Testing Electrocardiogram Date: 11/14/23 SB at 59bpm. LAD. Chest X-Ray Date: 11/14/23 Findings: + NAD Stress Test Date: 08/14/04 "Normal" stress ECHO. LVEF 75%. Stress EKG normal. Stress wall motion is normal. Mitral valve anatomy is normal. Mitral regurgitation in absent. No significant valvular disease.
--- NOTE | 2023-11-25 13:17 | History & Physical Report ---
Date of Service November 25, 2023 Assessment & Plan (1) Arthritis of right hip: 68-year-old female status post a left hip replacement with advanced right hip DJD is consequently worse over the past several years in particular over the past year. Very happy with the left hip and would like to have her right hip re placed. Plan: Orgran taken to the operating medial right total hip placement but the risks Mente this procedure were explained the patient include but not limited to DVT PE infection neurological injury vascular bleeding palm pain limb range of motion sepsis fairly with symptoms incomplete relief of symptoms need for further surgery in future excetra. The patient understands and desires to proceed. Informed consent was obtained. She can plan on staying in the hospital overnight and hopeful discharge postoperative day 1. She was Ener-G of her therapy. Will use aspirin for DVT prophylaxis. (2) Status post left hip replacement: History of Present Illness Chief Complaint: . Right hip pain. Primary Care Provider: Travon Hankins MD . The patient is a 68-year-old very active female long-term patient of mine who presents specifically for surgical treatment of her right hip. She has history of a left hip replacement done in 2019 which is done well. She is a very active and over the past several years she is developed increased pain discomfort in her right hip. Is gotten significant worse over the past year to year and a half. She takes anti-inflammatories which provide a little bit of relief. She continues to be active running a couple miles here and there and have more difficulty doing this. Scribes groin pain thigh pain rating down to her knee. No radicular symptoms. Very happy with the left hip would like to have her right hip replaced. Allergies Allergy/AdvReac Type Severity Reaction Status Date / Time oxycodone [From Percocet] AdvReac Unknown Severe Verified 11/14/23 09:53 bladder spasms Home Medications Medication Instructions Recorded Confirmed Type collagen (bovine) 100 % topical 1 ea UD 03/13/19 11/08/23 History powder levothyroxine 125 mcg tablet 125 mcg PO QAM 03/13/19 11/08/23 History vitamin B complex 1 tab PO QAM 03/13/19 11/08/23 History ascorbic acid (vitamin C) 500 mg 500 mg PO QAM 07/02/20 11/08/23 History capsule Antibiotic 1 dose PO UD PRN pre dental 11/08/23 11/08/23 History calcium carb, gluc 500 mg 1 tab PO QPM 11/08/23 11/08/23 History calcium-magnesium gluc, oxide 250 mg tablet (Calcium Magnesium) ibuprofen 600 mg tablet 600 mg PO UD PRN Pain 11/08/23 11/08/23 History melatonin 10 mg chewable tablet 10 mg PO HS 11/08/23 11/08/23 History omega-3 fatty acids 0 mg PO QPM 11/08/23 11/08/23 History potassium 99 mg tablet 0 mg PO QPM 11/08/23 11/08/23 History trazodone 50 mg tablet 0 mg PO HS 11/08/23 11/08/23 History vitamin E 30 unit capsule 0 unit PO QAM 11/08/23 11/08/23 History Past Med/Surg History Problem List Arthritis of right hip Chronic kidney disease Degenerative joint disease of left hip Status post left hip replacement Encounter for pre-operative examination Medical History History of mitral valve prolapse Per patient, told MVP age 30s No evidence of MVP per 2004 stress ECHO No murmur on PAT exam 11/14/23 Chronic kidney disease "Borderline" Creatinine 0.96/WNL on 11/14/23 preop labs Osteoarthritis Hypothyroidism Surgical History History of left hip replacement Left NILSON (04/02/2019): SAB at L3-4, 1 attempt at [facility] History of colonoscopy History of mandibular surgery Jaw wired s/p jaw fracture No ROM limitations per patient History of open reduction and internal fixation (ORIF) procedure LLE/ankle (+ hardware) History of tonsillectomy Family History Other No significant family history Social History Smoking Status: Former smoker Second Hand Exposure: No; Do You Dip or Chew Tobacco: No; Hx Alcohol Use: Yes Alcohol type: wine Hx Substance Use: No Preferred Language: Senegalese Communication Ability: Effective Postal Carrier Required: No Beliefs That Will Affect Care: None marital status: Current Living Situation: Spouse Feels Safe at Home: Yes Assistive Devices: Cane and Other Review of Systems All systems reviewed & are unremarkable except as noted in HPI & below. Physical Exam . Physical examination is a pleasant healthy-appearing thin female. Looks to be in excellent health. HEENT exam is benign. Neck supple no lymphadenopathy lungs". Heart is regular rate and rhythm. Ab soft nontender nondistended extremities grossly neuro vas intact as follows. Examination of the right hip and leg reveal patient walks with a slight bit of a limp. She has about a half a centimeter shorter on the right side compared to the left. She does have some pain with hip motion. Internal rotation to neutral. Negative straight leg raise. She is neurologically intact. Constitutional WD/WN, vitals as above Respiratory normal respiratory effort, lungs clear to auscultation Cardiovascular RRR, no murmur, no edema Results & Data Results & Data Laboratory Results . Diagnostic Findings . X-rays of the right hip were reviewed. Shows advanced right hip arthritis. Got complete loss of superior joint space. She has cystic changes of the femoral head. This has progressed markedly over the past 4 years. Her left hip replacement looks in good position without problems. PG Care Time/CCT Total # of Minutes Spent Total Time Spent with Patient: Total time spent is greater than 50% in coordination of care (as documented) at patient's floor/unit and/or counseling patient: Coding Level of Care Code None Diagnoses Arthritis of right hip M16.11 Status post left hip replacement Z96.642
--- OUTSIDE RECORDS SUMMARY | 2023-11-29 05:37 | External Medical Summary | Summary of Care ---
Author Name Unknown Organization [facility] Address [address] [place] [address] Phone [phone] Care Team Providers Care Special Technical Operations Officer Name Role Phone Nhi BALDERAS MD, Marc Cardoza Primary Care Provider [phone] Reason for Visit * Reason Comments eRx-Medication Refill Encounter Details Date Type Department Care Team (Late st Contact Info) Description 11/12/2023 Refill Family Practice [facility] 200 [facility] [place] [address] Marc Cuevas III, MD 200 [place] [address] Allergies No known active allergiesdocumented as of this encounter (statuses as of 11/21/2023) Medications Medication Sig Dispensed Refills Start Date End Date Status Magnesium 100 MG Capsule Take 1 Capsule by mouth at bedtime. Active B Complex Vitamins (VITAMIN B COMPLEX) Tablet Take 1 Tablet by mouth in the morning. Active Flaxseed Oil 1200 MG Oral Capsule Take 1,200 mg by mouth daily. 06/05/2020 Active Collagen Hydrolysate Powder 06/05/2020 Active Vitamin C 100 MG Oral Tablet Take 5 Tablets by mouth in the morning. Active Calcium 200 MG Oral Tablet Take by mouth 200 mg at bedtime . Active Potassium 95 MG Oral Tablet Take by mouth at bedtime . Active Melatonin 10 MG Oral Tablet Take 1 Tablet by mouth at bedtime. Active Vitamin E 1000 UNIT Oral Capsule Take 1 Capsule by mouth in the morning. Active [place]-3 1000 MG Oral Capsule Take by mouth . Active Benzonatate 100 MG Oral Capsule (Tessalon Perles) Take 1 Capsule by mouth 3 times a day as needed for Cough. Do not cut, crush, or chew. 50 Capsule 1 07/12/2023 Active Levothyroxine Sodium 125 MCG Oral Tablet (Levoxyl)Indication s:Acquired hypothyroidism TAKE 1/2 TABLET BY MOUTH ONCE DAILY (AT LEAST 30 MINUTES PRIOR TO BREAKFAST OR OTHER MEDICATIONS) 45 Tablet 1 08/14/2023 Active traZODone HCl 50 MG Oral Tablet (Desyrel) Take 1 and 1/2 tablets by mouth at bedtime. 45 Tablet 2 11/14/2023 Active traZODone HCl 50 MG Oral Tablet (Desyrel) Take 1 and 1/2 tablets by mouth at bedtime. 45 Tablet 2 08/15/2023 11/14/19 24 Discontinued documented as of this encounter (statuses as of 11/21/2023) Active Problems Problem Noted Date Diagnosed Date Hx of nonmelanoma skin cancer 02/01/2019 Overview: SCC L medial edmond 07/2018 Acquired hypothyroidism 09/23/2016 Hx of actinic keratosis 04/18/2014 documented as of this encounter (statuses as of 11/21/2023) Resolved Problems Problem Noted Date Diagnosed Date Resolved Date Chronic kidney disease, stage 3 unspecified 06/05/2020 09/11/2020 Stage 3a chronic kidney disease 03/10/2020 03/23/2021 Overview: Per CKD protocol - Per CKD protocol Kidney disease, chronic, sta ge III (GFR 30-59 ml/min) 04/09/2019 03/13/2020 Overview: Per CKD protocol documented as of this encounter (statuses as of 11/21/2023) Immunizations Name Administration Dates Next Due COVID-19 mRNA, LNP-s, No Pre serve, 2-Dose Series (Moderna) 05/04/2023,08/08/2020,07/11/2020 COVID-19, mRNA, LNP-s, PF, B ooster, 100mcg/0.5mg (Moderna) 02/25/2021 H1N1 2009 Influenza, IM 07/02/2009 HIB Hep B - HIB Hepatitis B (Comvax) 09/06/1997, 04/08/1997,03/11/1997 RSV Vac., Recomb, Adjuvant, PF,0.5 Ml (Arexvy) 04/20/2023 Seasonal Influenza, Quadriva lent Hd (Fluzone Hd) 02/23/2023 Seasonal Influenza, Quadriva lent, No Preserve, IM 02/05/2016 Seasonal Influenza, Split, I IV3, With Preserve, Inj 03/05/2019,02/13/2018,01/27/2017,2014,03/05/2013,07/02/2009 Seasonal Influenza, Trivalen t, Adjuvanted, 65+ yrs 02/24/2022 TDAP, Age 7 and older, IM (Adacel) 09/23/2016, Varicella Zoster Vaccine (Adult) 01/02/2013 Zoster Vaccine Recombinant (Shingrix) 03/20/2018 ,12/08/2017 documented as of this encounter Social History Tobacco Use Types Packs/Day Years Used Date Smoking Tobacco: Never Cigarettes 0.5 3 - 05/11/1975 Smokeless Tobacco: Never Alcohol Use Standard Drinks/Week Comments Yes 1 (1 standard drink = 0.6 oz pur e alcohol) PHQ-2 Answer Date Recorded PHQ-2 Score 0 03/06/2018 Hunger Vital Sign Answer Date Recorded Within the past 12 months, y ou worried that your food would run out before you got the money to buy more. Never true 02/02/20 23 Within the past 12 months, t he food you bought just didn't last and you didn't have money to get more. Never true 02/01/2023 Childcare Answer Date Recorded Do you feel overwhelmed with taking care of a child, family member or friend? No 02/01/2023 Does your family need help f inding childcare? (Household - for ages 0-17 years) Not on file 02/01/2023 Clothing Answer Date Recorded Have you been unable to get clothing when it was really needed? No 02/01/2023 Is your family able to get c lothes or diapers when needed? (Household - for ages 0-17 years) Not on file 02/01/2023 Personal Safety Answer Date Recorded Do you feel unsafe or have concerns for your saf ety? No 02/01/2023 Do you have concerns for you r family's safety? (Household - for ages 0-17 years) Not on file 02/01/2023 Utilities Answer Date Recorded Do you have trouble paying y our heating, water, or electric bill? No 02/01/2023 Is your family able to pay t he heat, water, or electric bill? (Household - for ages 0-17 years) Not on file 02/01/2023 Does your family have access to good internet? (Household - for ages 0-17 years) Not on file 02/01/2023 Employment Status Answer Date Recorded Are you unemployed or without regular income? No 02/01/2023 Does the household have a re gular source of income? (Household - for ages 0-17 years) Not on file 02/01/2023 Social Connections Answer Date Recorded How often do you feel lonely or isolated from th ose around you? Never 02/01/2023 Financial Resource Strain Answer Date R ecorded Do you have any trouble payi ng for your medications, or do you think you might in the future? No 02/01/2023 Does your family have troubl e paying for medicine? (Household - for ages 0-17 years) Not on file 02/01/2023 Transportation Needs Answer Date Record ed READ ONLY Do you have troubl e getting a ride to medical visits or work? Never True 02/01/2023 Does your family have a hard time getting a ride to doctors visits? (Household - for ages 0-17 years) Not on file 02/01/2023 Has lack of transportation k ept you from medical appointments, meetings, work, or from getting things needed for daily living? Check all that apply. (Adult - for ages 18 years and over) Not on file 02/01/2023 Do you (or your family) have trouble finding or paying for a ride (transportation)? (Household - for ages 0-17 years) Not on file 02/01/2023 Housing Stability Answer Date Recorded Do you currently live in a s helter or have no steady place to sleep at night? No 02/01/2023 READ ONLY Do you think you a re at risk of becoming homeless? No 02/01/2023 Does your family worry about paying for your home or becoming homeless? (Household - for ages 0-17 years) Not on file 1 Are you homeless or worried that you might be in the future? (Adult - for ages 18 years and over) Not on file Are you (or your family) cindy eless or worried that you might be in the future? (Household - for ages 0-17 years) Not on file Food Insecurity Answer Date Recorded Do you need food for this week? No 02/01/2023 Are you able to get enough f ood for your family? (Household - for ages 0-17 years) Not on file 02/01/2023 Does your family need food t his week? (Household - for ages 0-17 years) Not on file 02/01/2023 Do you always have enough fo od for your family? (Household - for ages 0-17 years) Not on file 02/01/2023 Sex and Gender Information Value Date Recorded Sex Assigned at Female 08/18/2018 2:41 PM EDT Gender Identity Female 08/18/2018 2:41 PM EDT Sexual Orientation Straight 08/18/2018 2: 41 PM EDT Job Start Date Occupation Industry Not on file Not on file Not on file documented as of this encounter Miscellaneous Notes * Telephone Encounter - Marla Canela - 11/21/2023 10:07 PM EDT Received message from [facility] regarding patient needing labs. Patient was notified. Successfully contacted patient and provided [facility] message. * Telephone Encounter - Efrain Langley [facility] - 11/14/2023 2:32 PM EDTSigned Prescriptions: Disp Refills traZODone HCl 50 MG Oral Tablet (Desyrel) 45 Tab*2 Sig: Take 1 and 1/2 tablets by mouth at bedtime.Authorizing Provider: MARC CUEVAS III User: EFRAIN LANGLEY * Telephone Encounter - Efrain Langley, [facility] - 11/14/2023 2:28 PM EDT Provided 30 days supply with 2 refill(s). Per refill protocol patient should have AST ALT on file within past year. Reviewed AMP report, Care Gaps/Health Maintenance, medications list, and for any routine labs typically ordered for this patient. Lab orders placed. Please contact patient to advise of labs ordered for blood draw. Fasting is not required. Advise toobtain labs before requesting the next refill. Thank you, Efrain Langley, PharmD Clinical Pharmacist [facility] ([facility]) [phone] 11/14/2023, 2:29 PM documented in this encounter Plan of Treatment Upcoming Encounters Date Type Department Care Team (Late st Contact Info) Description 08/24/2024 1:00 PM EDT Imaging Radiology [address], [address] [place] [address] Scheduled Procedures Name Priority Associated Diagnoses Date/Ti me COLONOSCOPY FLEXIBLE PROXIMA L DIAGNOSTIC Recall Screening for colon cancer Health Maintenance Due Date Last Done Comments Cologuard 2001 Fecal Occult Blood Test 2001 Sigmoidoscopy 2001 DXA Scan 09/07/2018 09/08/2011 Depression Screening 09/20/2018 09/20/2017 Pneumococcal Vaccine: 65+ Years (1 of 1 - PCV) 2021 COVID-19 Vaccine ( - 2022- season) 2023 05/04/2023, 02/25/2021, 08/08/2020, Additional history exists Influenza Vaccine (FLU shot) (#1) 2024 02/23/2023, 02/24/2022, 03/05/2019, Additional history exists TSH 07/27/2024 07/28/2023, 03/0 12/2022, 04/10/2021, Additional history exists Mammogram 08/24/2024 08/25/2023, 07/31, 01/12/2022, Additional history exists DTaP,Tdap,and Td Vaccines (3 - Td or Tdap) 09/23/2026 09/23/2016, 04/05/2007 Lipid Panel 07/27/2028 07/28/2023, 10/30, 09/10/2015, Additional history exists Colonoscopy 07/29/2031 07/28/2021, 07/01, 04/22/2011, Additional history exists Colorectal Cancer Screening 07/29/2031 Hepatitis B Vaccine Completed 09/06/1997, 04/08/1997, 03/11/1997 Hepatitis C Screening Completed 08/13/2010 Zoster Vaccines Completed 03/20/2018, 12/2017, 01/02/2013 Pap Smear Discontinued 03/23/2021, 08/31, 11/11/2017, Additional history exists HPV (Gardasil) Vaccine Aged Out No lo nger eligible based on patient's age to complete this topic MENINGOCOCCAL (MENACTRA/MENVEO) Aged Out No longer eligible based on patient's age to complete this topic documented as of this encounter Medical Devices Not on filedocumented as of this encounter Care Teams Special Technical Operations Officer Relationship Specialty Start Date End Date Marc Cuevas III, MD [address] [place] [address] PCP - General 06/22/02 documented as of this encounter
--- OUTSIDE RECORDS SUMMARY | 2023-11-29 05:37 | External Medical Summary | Summary of Care ---
Author Name Unknown Organization [facility] Address [address] [place] [address] Phone [phone] Care Team Providers Care Kiln Stoker Name Role Phone Nhi BALDERAS MD, Marc Cardoza Primary Care Provider [phone] Reason for Visit * Reason Comments eRx-Medication Refill Encounter Details Date Type Department Care Team (Late st Contact Info) Description 11/12/2023 Refill Family Practice [facility] 200 [facility] [place] [address] Marc Cuevas III, MD 200 [place] [address] Allergies No known active allergiesdocumented as of this encounter (statuses as of 11/14/2023) Medications Medication Sig Dispensed Refills Start Date [...] Capsule by mouth in the morning. Active [place]-3 1000 MG Oral Capsule Take by mouth [...] as of this encounter (statuses as of 11/14/2023) Active Problems Problem Noted Date Diagnosed Date Hx of nonmelanoma skin cancer 02/01/2019 Overview: SCC L medial edmond 07/2018 Acquired hypothyroidism 09/23/2016 Hx of actinic keratosis 04/18/2014 documented as of this encounter (statuses as of 11/14/2023) Resolved Problems Problem Noted Date Diagnosed Date Resolved Date Chronic kidney disease, stage 3 unspecified 06/05/2020 09/11/2020 Stage 3a chronic kidney disease 03/10/2020 03/23/2021 Overview: Per CKD protocol - Per CKD protocol Kidney disease, chronic, sta ge III (GFR 30-59 ml/min) 04/09/2019 03/13/2020 Overview: Per CKD protocol documented as of this encounter (statuses as of 11/14/2023) Immunizations Name Administration Dates Next Due COVID-19 mRNA, LNP-s, No Pre serve, 2-Dose Series (Moderna) 05/04/2023,08/08/2020,07/11/2020 COVID-19, mRNA, LNP-s, PF, B ooster, 100mcg/0.5mg (Moderna) 02/25/2021 H1N1 2009 Influenza, IM 07/02/2009 RSV Vac., Recomb, Adjuvant, PF,0.5 Ml (Arexvy) [...] 02/01/2023 Does the household have a re lar source of income? (Household - for ages [...] 18 years and over) Not on file 10/03/202 3 Are you (or your family) cindy eless [...] encounter Miscellaneous Notes * Telephone Encounter - Efrain Langley [facility] - 11/14/2023 2:32 PM EDTSigned Prescriptions: Disp Refills traZODone HCl 50 MG Oral Tablet (Desyrel) 45 Tab*2 Sig: Take 1 and 1/2 tablets by mouth at bedtime.Authorizing Provider: MARC CUEVAS III User: EFRAIN LANGLEY * Telephone Encounter - Efrain Langley [facility] - 11/14/2023 2:28 PM EDT Provided 30 [...] Clinical Pharmacist [facility] ([facility]) [phone] 11/14/2023, 2:29 PM documented in this encounter Plan of Treatment Upcoming Encounters Date Type Department Care Team (Late st Contact Info) Description 08/24/2024 1:00 PM EDT Imaging Radiology [address] [place] [address] Scheduled Procedures Name Priority Associated Diagnoses Date/Ti me COLONOSCOPY FLEXIBLE PROXIMA L DIAGNOSTIC Recall Screening for colon cancer Health Maintenance Due Date Last Done Comments Cologuard 2001 Fecal Occult Blood Test 2001 Sigmoidoscopy 2001 DXA Scan 09/07/2018 09/08/2011 Depression Screening 09/20/2018 09/20/2017 Pneumococcal Vaccine: 65+ Years (1 of 1 - PCV) 2021 COVID-19 Vaccine (2022- season) 2023 05/04/2023, 02/25/2021, 08/08/2020, Additional history [...] filedocumented as of this encounter Care Teams Kiln Stoker Relationship Specialty Start Date End Date Marc Cuevas III, MD [address] [facility] [place] [address] PCP - General 06/22/02 documented as of this encounter
--- OUTSIDE RECORDS SUMMARY | 2023-11-29 05:37 | External Medical Summary | Summary of Care ---
Author Name Unknown Organization [facility] Address [address] [place] [address] Phone [phone] Care Team Providers Care Private Sector Executive Name Role Phone Nhi BALDERAS MD, Marc Cardoza Primary Care Provider [phone] Reason for Visit * Reason Comments eRx-Medication Refill Encounter Details Date Type Department Care Team (Late st Contact Info) Description 11/12/2023 Refill Family Practice [facility] 200 [facility] [place] [address] Marc Cuevas III, MD 200 [place] [address] Allergies No known active allergiesdocumented as of [...] Capsule by mouth in the morning. Active [place]-3 1000 MG Oral Capsule Take by mouth [...] Notes * Telephone Encounter - Efrain Langley [facility] - 11/14/2023 2:32 PM EDTSigned Prescriptions: Disp Refills traZODone HCl 50 MG Oral Tablet (Desyrel) 45 Tab*2 Sig: Take 1 and 1/2 tablets by mouth at bedtime.Authorizing Provider: MARC CUEVAS III User: EFRAIN LANGLEY * Telephone Encounter - Efrain Langley [facility] - 11/14/2023 2:28 PM EDT Provided 30 [...] Clinical Pharmacist [facility] ([facility]) [phone] 11/14/2023, 2:29 PM documented in this encounter Plan of Treatment Upcoming Encounters Date Type Department Care Team (Late st Contact Info) Description 08/24/2024 1:00 PM EDT Imaging Radiology [address] [place] [address] Scheduled Procedures Name Priority Associated Diagnoses Date/Ti [...] filedocumented as of this encounter Care Teams Private Sector Executive Relationship Specialty Start Date End Date Marc Cuevas III, MD [address] [facility] [place] [address] PCP - General 06/22/02 documented as of this encounter
[2023-11-29] MEDS: LR 500ML BOLUS, THEN 15ML/HR IV SCH (05:58)
[2023-11-29] MEDS: Scopolamine 1 MG TDSY TD SCH (05:58)
[2023-11-29] MEDS: FAMOTIDINE 20 MG TAB PO SCH (05:58)
[2023-11-29] MEDS: METOCLOPRAMIDE HCL 10 MG TABLET PO SCH (05:59)
[2023-11-29] MEDS: CeleBREX 200 MG CAP PO SCH (05:59)
[2023-11-29] MEDS: ACETAMINOPHEN 500 MG TAB PO SCH ×2 (05:59→14:15)
[2023-11-29] MEDS: LR 60ML/HR IV SCH (05:59)
[2023-11-29] MEDS: dexAMETHasone**PF** 10 MG/ML VIAL IV SCH (05:59)
[2023-11-29] MEDS ORDERED: BUPIVACAINE 0.5 % 5 MG/1 ML PF 10ML VIAL ONE (06:22)
[2023-11-29] MEDS ORDERED: MIDAZOLAM HCL 1 MG/ML 2ML VIAL ONE (06:40)
[2023-11-29] MEDS ORDERED: LIDOCAINE 2% 2 ML VIAL/AMP(20MG/ML) INFIL ONE (06:40)
[2023-11-29] MEDS ORDERED: PROPOFOL IV EMULSION 10 MG/ML 20 ML VIAL IV ONE (06:40)
[2023-11-29] MEDS: TRANEXAMIC ACID 1,000 MG **IV Pre-op IV SCH (06:43)
--- NOTE | 2023-11-29 06:45 | History & Physical Bridge Note ---
Date of Service November 29, 2023 History & Physical Bridge Note I have examined the patient, reviewed the History & Physical and in the interval since the performance of the History & Physical I have noted the following changes of clinical significance: no changes noted
[2023-11-29] MEDS ORDERED: ONDANSETRON INJ 2 MG/ML 2 ML VIAL IV PRN ×2 (06:52→10:22)
[2023-11-29] MEDS ORDERED: ATROPINE SULFATE 0.1 MG/ML 10ML SYR IV PRN (06:52)
[2023-11-29] MEDS ORDERED: fentaNYL citrate PF 100 MCG/2 ML VIAL IV PRN (06:52)
[2023-11-29] MEDS ORDERED: ePHEDrine sulfate 50 MG/ML AMP IV PRN (06:52)
[2023-11-29] MEDS: ceFAZolin 2000MG 2,000 MG/15 ML SYR IV SCH (06:58)
[2023-11-29] MEDS ORDERED: ePHEDrine sulfate 50 MG/5 ML SYR ONE (07:21)
[2023-11-29] MEDS: BUPIVACAINE/EPINEPHRINE 0.5% MPF 1:200,000 30 ML VIAL ONE (08:09)
[2023-11-29] MEDS ORDERED: KETOROLAC 30 MG/ML VIAL ONE (08:17)
--- NOTE | 2023-11-29 08:43 | Operative Report ---
PG Post Operative Report Pre & Post Diagnosis Operation Date: 11/29/23 07:00 Pre-Op Diagnosis: Arthritis of Right Hip Post-Op Diagnosis: Arthritis of Right Hip I identified the patient and participated in the time-out.: Yes Procedure Operation Date: 11/29/23 07:00 Actual Procedures p Right Total Hip Arthroplasty(Right) - Donnie Del Toro MD Surgeon Donnie Del Toro MD Biomedical Engineering Internship Trip Butcher PA-C Estimated Blood Loss 100 Findings Consistent with Post-Op Diagnosis Specimens Right femoral head sent for pathology. Anesthesia Type Spinal MAC Complications none Disposition Accompanied Patient To Recovery: No Indications Patient is a 68-year-old very active female whose had a fairly long history of hip issues and problems and pain. She underwent a left total hip replacement about 5 years ago. Over the past year or 2 she developed increased pain discomfort in her right hip. Started to really limit her activities. X-rays show advanced hip arthritis. She elected proceed with total hip arthroplasty. Description of Procedure Operative implants consist of: 1 Biomet G7 size 48 mm acetabular shell. 2. 6.5 cancellous acetabular screws 135 mm length and 1 of 25 mm length. 3. [place] hole client success director. 4. Highly cross-linked polyethylene liner with a 48 mm outer diameter and 32 mm inner diameter. 5. DePuy Corail size 10 KLA femoral stem. 6. +5/32 mm ceramic articular ball. The patient was taken the operating, identified, placed on the operating table in the supine position. All contact areas were appropriately padded. IV antibiotics tried by anesthesia team. A spinal anesthetic and been implemented holding area. A Queen catheter was placed in sterile fashion. The patient then placed in the left lateral decubitus position. An axillary roll was placed. Distal Birkett position was used for positioning. The right hip and leg were then prepped and draped in usual sterile fashion. A posterolateral approach to the right hip was then performed to a curvilinear incision centered over the greater trochanter. Sharp dissection Through subcutaneous tissue down to level the IT band gluteal fascia through the IT band gluteal fascia was sized longitudinally in line with skin incision. The underlying greater bursa was excised. The piriformis and external rotators along with the posterior hip joint capsule were then released from the posterior aspect the hip as a single layer. Great care was taken throughout the procedure protect the sciatic nerve at all times. The hip was internally rotated and dislocated. A femoral neck osteotomy cut was made with a Final Cut about 8 mm above the lesser trochanter. Femoral head was removed and sent for pathology. The femur was retracted anteriorly. Attention drawn the acetabulum. The acetabular labrum was excised. The pulmonary fat was excised. Sequential reaming of the acetabulum was then performed again with a size 43 and progressing up to 47. I then reamed a little bit with a 48 reamer and placed a 48 mm Biomet G7 acetabular shell in about 40 degrees lateral opening and 20 degrees of anteversion. It was fixed with two 6.5 cancellous acetabular screws. A small anterior osteophyte was removed. Trial liner was placed. Attention drawn the femur. The proximal femur was entered with a Litographs cutter followed by canal finder. I then broached beginning with a size 8 and progressing up to a 10. We got excellent fit with a 10. I could not quite get this down to the calcar cut care. We then trialed the hip and the +5 articular ball provided full stability in full extension and external rotation flexion to 90 degrees internal Tatian over 50 degrees. Leg lengths seemed equal and soft tissue tension was appropriate. We elect to place these implants. All trial implants were removed. An apex hole client success director was placed. Highly cross-linked polyethylene liner was placed. A size 10 KLA femoral stem was impacted in position. A +5/32 mm ceramic articular ball was placed. Hip was located and once again found to be stable. Attention drawn toward closing. The wound was irrigated coconuts pulsatile lavage solution. I did irrigated and with a dilute Betadine solution for 3 minutes. We then irrigated the wound again. The posterior capsule and external rotators then repaired through drill holes in the posterior trochanter with #2 Tycron suture. The IT band gluteal fascia then closed in 1 PDS suture in a running fashion. Subcutaneous tissues then closed with 2 layers of the deep layer #1 Vicryl suture and subcutaneous tissues with 2-0 Dexon suture in a buried interrupted fashion. Skin was closed skin lauren. Leg was then cleaned and dried a sterile dressing with Xeroform, 4 fours, ABD pad and foam tape was applied. Patient then transferred to the recovery room in stable condition. Patient tolerated procedure well and there were no complications. I attest to the content of the Intraoperative Record and any orders documented therein. Any exceptions are noted below.
--- NOTE | 2023-11-29 09:03 | XRay Report ---
XR hip 1V RT w pelvis HISTORY: 68 years-old Female IN PACU - Post Surgical COMPARISON: 09/01/2023 TECHNIQUE: AP view of the pelvis with crosstable lateral view of the right hip FINDINGS: Bilateral hip arthroplasties. Skin lauren lateral to the right hip with expected postoperative soft tissue swelling and deep tissue air. No acute fracture, dislocation or unexpected opaque foreign body . IMPRESSION: Right hip arthroplasty with expected postoperative changes. ACT 112: Negative or not required by law. The above report was generated using voice recognition software. It may contain grammatical, syntax o r spelling errors. Electronically signed by: Hal Brito M.D. 11/29/2023 9:02 AM
--- NOTE | 2023-11-29 09:49 | Anesthesiology Progress Note ---
Date of Service November 29, 2023 Anesthesia Post Procedure Vital Signs Vital Signs: Temp Pulse Resp BP Pulse Ox O2 Del Method 11/29/23 09:30 36.7 C 65 14 108/59 L 98 Room Air 11/29/23 09:15 36.7 C 61 8 L 104/80 98 Room Air 11/29/23 09:05 71 18 113/52 L 97 Room Air 11/29/23 08:55 71 20 110/59 L 97 Room Air 11/29/23 08:45 70 10 L 106/58 L 98 Room Air 11/29/23 08:35 36.4 C L 74 14 91/57 L 99 Room Air 11/29/23 05:40 36.9 C 56 L 18 115/74 99 Room Air Transfer of Care Handoff Completed per policy Notes Mental Status: alert / awake / arousable and participated in evaluation Patient Amnestic to Procedure: Yes Nausea / Vomiting: adequately controlled Pain: adequately controlled Airway Patency, RR, SpO2: stable & adequate BP & HR: stable & adequate Hydration State: stable & adequate Neuraxial Anesthesia: was administered and sensory block is resolving Anesthetic Complications: no major complications apparent and Pt Satisfied with anesthetic care
[2023-11-29] MEDS ORDERED: ALUMINUM/MAGNESIUM SUSP 30 ML UDC PO PRN (10:22)
[2023-11-29] MEDS ORDERED: VITAMIN E PO SCH (10:22)
[2023-11-29] MEDS ORDERED: HYDROmorphone INJ 0.5 MG/0.5 ML SYR IV PRN (10:22)
[2023-11-29] MEDS ORDERED: MAGNESIUM HYDROXIDE SUSP 30 ML UDC PO PRN (10:22)
[2023-11-29] MEDS ORDERED: NALOXONE HCL 0.4 MG/1 ML VIAL/CARP IV PRN (10:22)
[2023-11-29] MEDS ORDERED: diphenhydrAMINE Capsule 25 MG CAP PO PRN (10:22)
[2023-11-29] MEDS ORDERED: ANTIBIOTIC PO PRN (10:22)
[2023-11-29] MEDS ORDERED: bisacodyL 10 MG SUPP PR PRN (10:22)
[2023-11-29] MEDS ORDERED: METOCLOPRAMIDE HCL INJ 5 MG/ML 2 ML VIAL IV PRN (10:22)
[2023-11-29] MEDS ORDERED: SENNA 8.6 MG TAB PO SCH (10:22)
[2023-11-29] MEDS ORDERED: NON-FORMULARY MEDICATION (Ascorbic Acid (Vitamin C) 500 mg capsule) PO SCH (10:22)
[2023-11-29] MEDS: SODIUM CHLORIDE 0.9% 1,000 ML IV SCH (10:45)
[2023-11-29] MEDS: KETOROLAC TROMETHAMINE 15 MG/ML VIAL IV SCH (11:15)
[2023-11-29] MEDS: DOCUSATE SODIUM 100 MG CAP PO SCH (11:21)
[2023-11-29] MEDS: VITAMIN B COMPLEX TAB PO SCH (11:21)
[2023-11-29] MEDS: ASPIRIN 81 MG ECTAB PO SCH (11:21)
[2023-11-29] MEDS: MULTIVITAMIN TAB PO SCH (11:21)
[2023-11-29] MEDS: ceFAZolin 1000MG 1,000 MG/7.5 ML SYR IV SCH (14:17)
[2023-11-29] MEDS: Scopolamine CHECK PATCH PLACEMENT SCH (15:09)
[2023-11-29] MEDS: TRANEXAMIC ACID / 0.7% NACL 1,000 MG/100 ML BAG IV SCH (15:09)
[2023-11-29] MEDS: ASCORBIC ACID 500 MG TAB PO SCH (17:24)
[2023-11-29] MEDS: SENNA 8.6 MG TAB PO SCH (20:16)
[2023-11-29] MEDS: CALCIUM CARBONATE 1250MG TAB PO SCH (20:16)
[2023-11-29] MEDS ORDERED: NON-FORMULARY MEDICATION (Potassium 99 mg Tablet) PO SCH (21:00)
[2023-11-29] MEDS: MELATONIN 3 MG TAB PO SCH (21:56)
[2023-11-29] MEDS: traZODone HCL 50 MG TAB PO SCH (21:56)
[2023-11-30] MEDS: traMADol HCL 50 MG TABLET PO PRN (03:54)
[2023-11-30] MEDS: LEVOTHYROXINE SODIUM 125 MCG TABLET PO SCH (05:32)
[2023-11-30] MEDS: dexAMETHasone 10 MG in SYRINGE 0 ML IV SCH (08:26)
[2023-11-30 10:08] LABS: Basophils # (auto) 0.06 K/uL (0.00-0.20); Basophils % (auto) 0.8 %; Eosinophils # (auto) 0.07 K/uL (0.00-0.50); Eosinophils % (auto) 0.9 %; Hematocrit (blood only) 30.6 % (37.0-47.0); Immature Granulocytes # (auto) 0.03 K/uL (0.01-0.20); Immature Granulocytes % (auto) 0.4 %; Lymphocytes # (auto) 1.44 K/uL (1.20-3.40); Lymphocytes % (auto) 18.1 %; Mean Corpuscular Hemoglobin 30.2 pg (25.0-34.0); Mean Corpuscular Hgb Conc 32.7 g/dL (32.0-36.0); Mean Corpuscular Volume 92.4 fL (80.0-100.0); Mean Platelet Volume 11.3 fL (9.4-12.4); Monocytes # (auto) 0.69 K/uL (0.11-0.59); Monocytes % (auto) 8.7 %; Neutrophils # (auto) 5.66 K/uL (1.40-6.50); Neutrophils % (auto) 71.1 %; Platelet Count 185 K/uL (130-400); RDW Coefficient of Variation 13.3 % (11.5-14.5); RDW Standard Deviation 45.4 fL (36.4-46.3); Red Blood Count 3.31 M/uL (4.20-5.40); White Blood Count 7.95 K/ul (4.8-10.8)
[2023-11-30 10:16] LABS: BUN Creatinine Ratio 16.9 (10-20); Calcium 8.5 mg/dl (8.6-10.3); Est GFR (African American) 77.7 ml/min; Est GFR (Non-African American) 67.1 ml/min; Potassium 4.3 mmol/L (3.5-5.1)
--- NOTE | 2023-11-30 11:08 | Orthopedic Progress Note ---
Date of Service November 30, 2023 Assessment & Plan (1) Status post left hip replacement: (2) Status post right hip replacement: Plan: 68-year-old female postop day 1 from right hip replacement doing well. Pains controlled. Hips located. She is neurologically intact. Plan: 1. DVT prophylaxis including thigh-high teds, SCDs, aspirin twice a day. 2. PT/OT. Weight-bear as tolerated. Right total hip protocol. 3. Pain control. Doing well with current pain regimen. 4. Disposition plan to discharge to home with some home health today. Admission and Anticipated Discharge Date Admission Date: November 29, 2023 Subjective 68-year-old female postop day 1 from right hip replacement. She is doing pretty well. She was disappointed that she had to take a tramadol in the middle of the night. Therapy is going pretty well. No chest pain or shortness of breath. Not feeling dizzy or lightheaded. Hoping to go home today. Physical Exam Physical Exam: Physical exam shows a pleasant middle-aged female. Sitting up in her bedside chair looks completely comfortable. Examination of the right hip and leg reveals the dressing be clean dry and intact. Thigh is soft and supple. Leg lengths are equal. She can dorsiflex and plantarflex her foot appropriately. Respiratory: normal respiratory effort, lungs clear to auscultation Cardiovascular: RRR, no murmur, no edema Gastrointestinal (Abdomen): normal bowel sounds, soft, nontender, no hepatosplenomegaly Results & Data Vital Signs (Past 12 Hours) Vital Signs Temp Pulse Pulse Resp BP BP Pulse Ox 11/30/23 10:28 36.6 C 49 L 51 L 16 108/52 L 99/61 L 99 11/30/23 08:04 36.6 C 49 L 16 108/52 L 99 11/30/23 07:30 11/30/23 03:47 36.6 C 51 L 18 120/74 98 O2 Del Method 11/30/23 10:28 11/30/23 08:04 Room Air 11/30/23 07:30 Room Air 11/30/23 03:47 Room Air Laboratory Results Hemoglobin is 10.0. Hematocrit is 30.6. Electrolytes are stable.
== END 2023-11-30 11:38 | disposition home health service (06) ==
LOC: ASU 05:09 → INTOOBSV 08:35 → 3E 09:21